=== PATIENT | male | born 1955 | race Two or more races ===

== ENCOUNTER 2017-11-05 21:37 | Emergency (ER) | payer SELFPAY ==
[~2017-11-05] VITALS: Ht 175.3 cm; Wt 70.5 kg
[2017-11-05 21:37] VITALS: BP 150/92
== END 2017-11-05 22:07 ==
LOC: ED 21:58
DX: R53.1 Weakness (principal); R06.02 Shortness of breath; Z53.21 Procedure and treatment not carried out due to patient leaving prior to being seen by health care provider